=== PATIENT | male | born 2000 | race Caucasian/White ===

== ENCOUNTER 2022-05-29 11:59 | Emergency (ER) | payer OTHER ==
[~2022-05-29] VITALS: Ht 177.8 cm; Wt 76.7 kg
[2022-05-29 12:11] VITALS: BP 116/72
--- NOTE | 2022-05-29 12:30 | NUR ---
22M REQUESTING A DOCTORS NOTE FOR WORK, STATES "I CALLED OFF WORK BECAUSE I WAS NAUSEOUS BUT NOW THEY NEED A NOTE FOR ME TO GO BACK." REPORTS ALL SYMPTOMS HAVE RESOLVED AND HAS NO MEDICAL COMPLAINTS AT THIS TIME.
--- NOTE | 2022-05-29 12:55 | NUR ---
Patient discharged with v/s stable. Written and verbal after care instructions given and explained. Patient verbalized understanding. Ambulatory with steady gait. All questions addressed prior to discharge. Advised to follow up with PMD.
== END 2022-05-29 12:55 | disposition home or self-care (01) ==
LOC: MED 11:59
DX: Z02.89 Encounter for other administrative examinations (principal); F12.90 Cannabis use, unspecified, uncomplicated
CPT/HCPCS: 99281